=== PATIENT | female | born 1955 | race Caucasian/White ===

== ENCOUNTER 2016-12-06 14:45 | Emergency (ER) | payer OTHER ==
[~2016-12-06] VITALS: Ht 170.2 cm; Wt 81.8 kg
[~2016-12-06 14:45] MED LIST: DEPRESSION MED PO; HEPATITIS MED PO; HYDR-309 PO
[2016-12-06] MEDS ORDERED: LORazepam 1 MG TABLET PO ONE (16:15)
[2016-12-06] MEDS ORDERED: PROZ10 PO (16:19)
[2016-12-06 17:22] VITALS: BP 135/69
== END 2016-12-06 17:46 | disposition home or self-care (01) ==
LOC: EMS 14:50 → EDBD 14:50 → EMS 17:46
DX: F41.0 Panic disorder [episodic paroxysmal anxiety] (principal); K75.9 Inflammatory liver disease, unspecified; Z87.891 Personal history of nicotine dependence
CPT/HCPCS: 99283